=== PATIENT | male | born 1965 | race Caucasian/White ===

== ENCOUNTER 2024-03-05 06:17 | Observation (INO) ==
[2024-03-05] MEDS: ONDANSETRON INJ 2 MG/ML 2 ML VIAL IV STA (06:33)
[2024-03-05 06:44] LABS: Hematocrit (blood only) 42.5 % (42.0-52.0); Hemoglobin 15.2 g/dl (14.0-18.0); Mean Corpuscular Hemoglobin 31.4 pg (25.0-34.0); Mean Corpuscular Hgb Conc 35.8 g/dL (32.0-36.0); Mean Corpuscular Volume 87.8 fL (80.0-100.0); Platelet Count 305 K/uL (130-400); RDW Coefficient of Variation 12.6 % (11.5-14.5); RDW Standard Deviation 40.4 fL (36.4-46.3); Red Blood Count 4.84 M/uL (4.70-6.10); White Blood Count 19.22 K/ul (4.8-10.8)
--- NOTE | 2024-03-05 06:49 | Emergency Department Note ---
Impression & Plan Coffee ground emesis, Acute upper gastrointestinal bleeding, Elevated lactic acid level, Leukocytosis, Hernia, hiatal ED Provider Note HISTORY OF PRESENT ILLNESS: Patient is a 58-year-old male presenting with coffee-ground emesis and left lower quadrant abdominal pain. Patient reports that yesterday he had a left mastoidectomy for Mnire's disease. He reports he got back to the skilled nursing late last night and was feeling generally unwell and then proceeded to vomit for hours. He reports he was unable to get up and pulled his emergency alarm secondary to feeling dizzy like he was going to pass out every time he stood up. He reports that he proceeded to vomit for multiple hours until someone came to check on him. He states that he had upper central abdominal pain that has since localize itself to his left lower quadrant. He denies any dysuria or hematuria. Denies any anticoagulation use. He denies any diarrheal or constipation symptoms. He has an extensive abdominal surgical history secondary to trauma, per the patient. Current planing of nausea. Nursing staff reports that the patient had an episode of coffee-ground emesis in the ER and when fecal occult occult tested it was positive. ROS: as above PHYSICAL EXAM: Constitutional: Patient appears in no acute distress. HENT: Head: Normocephalic and atraumatic. Eyes: EOMI, PERRL Mouth/Throat: Mucous membranes moist. Neck: Trachea midline. Neck supple. Cardiovascular: RRR, No murmurs, rubs or gallops. Intact distal pulses. Pulmonary/Chest: No respiratory distress. Breath sounds clear and equal bilaterally. No wheezes or rales. Abdominal: Abdomen soft, no tenderness, rebound or guarding. Musculoskeletal: No edema, tenderness or deformity noted. Skin: Warm and dry. No rash, erythema, pallor or cyanosis Psychiatric: Appropriate mood and affect for situation. Neurological: Alert and keenly responsive. CN II-XII grossly intact, moving all extremities equally and fully. MDM: - Vitals signs showed tachycardia - History obtained via patient. History as above. - Chronic conditions affecting care: Meniere's disease; HLD - Differential diagnoses include, but are not limited to: esophageal varices; peptic ulcer disease; esophagitis; postoperative complication; ACS - Order placed for continuous cardiac monitoring. At this time, monitor showed rate of 70 bpm with normal sinus rhythm, per my interpretation. - External medical records reviewed. [facility] ENT history and physical exam dated 03/04/2024 was reviewed. Patient was scheduled for surgery in their clinic yesterday. He had a left mastoidectomy with possible OCR, per note. - EKG interpreted by myself showed normal sinus rhythm. Rate 74 bpm. QT 390. No acute ischemic changes. - Laboratory workup interpreted by myself showed leukocytosis (WBC 19.22) with left shift; elevated lactate (2.1); stable electrolytes; hyperglycemia (glucose 163); normal troponin; normal lipase; normal hemoglobin - Patient given 1L NS, 80 mg IV protonix, 20 mg IV pepcid and 4 mg IV zofran. Repeat lactate still elevated at 2.1 - Blood cultures and procalcitonin added to workup. - Patient given IV zosyn empirically - Patient given 50 mcg IV fentanyl for pain. - CTA chest negative for dissection or PE. Noted to have a moderate-sized humeral hernia with fluid-filled mildly dilated esophagus - CT abdomen/pelvis with IV contrast negative for acute pathology. Noted to have moderate hiatal hernia. - COVID/flu/RSV negative - Patient had an episode of coffee-ground emesis in the ER. Nursing tested it was fecal occult positive. - Discussion was had with correctional casework specialist about patient's case and need for admission - Patient was having difficulties urinating in the emergency department and was bladder scanned by nursing staff for almost 700 cc of urine. Rodriguez catheter was placed. - Hospitalist, Dr. Chavez, consulted for admission - Patient admitted to [facility] service for further evaluation and management. ASSESSMENT AND PLAN: Diagnosis: Coffee-ground emesis; hiatal hernia; leukocytosis; elevated lactic acid; upper GI bleed Plan: admit Past Med/Surg History Problem List (Updated 03/05/24 @ 10:28 by Deborah Rowland MD) Hernia, hiatal (Acute) Leukocytosis (Acute) Elevated lactic acid level (Acute) Acute upper gastrointestinal bleeding (Acute) Coffee ground emesis (Acute) Mnire's disease Upper GI bleed Social History Smoking Status: Former smoker Tobacco Type: Cigarettes Preferred Language: Hong Konger Feels Safe at Home: Yes Results & Data (ED) Vital Signs Vital Signs - 24 hr 03/05/24 06:25 03/05/24 06:30 03/05/24 06:59 Temperature 36.5 C 36.5 C Temperature Source Oral Oral Pulse Rate 71 111 H Pulse Rate [Apical] 85 Respiratory Rate 20 15 Respiratory Effort / Characteristics Non-Labored Non-Labored Spontaneous Respiratory Depth Normal Normal Respiratory Pattern Regular Regular Blood Pressure 173/107 H Blood Pressure [Right Arm] 169/115 H Blood Pressure Mean 129 Blood Pressure Mean [Right Arm] 133 Blood Pressure Position Sitting Pulse Oximetry 96 96 Oxygen Delivery Method Room Air Room Air Sepsis Recent Fever Within 48 Hours No Sepsis New/Unexplained Change in Mental Status No Sepsis Action Taken by Nursing No Action Required 03/05/24 06:59 03/05/24 08:08 Temperature Temperature Source Pulse Rate 77 Pulse Rate [Apical] 70 Respiratory Rate 15 14 Respiratory Effort / Characteristics Non-Labored Spontaneous Respiratory Depth Normal Respiratory Pattern Blood Pressure Blood Pressure [Right Arm] 141/84 H Blood Pressure Mean Blood Pressure Mean [Right Arm] 103 Blood Pressure Position Pulse Oximetry 97 97 Oxygen Delivery Method Room Air Room Air Sepsis Recent Fever Within 48 Hours Sepsis New/Unexplained Change in Mental Status Sepsis Action Taken by Nursing Laboratory Data 03/05/24 06:26 03/05/24 06:26 Lab Results 03/05/24 03/05/24 03/05/24 Range/Units 06:26 06:54 08:55 WBC 19.22 H (4.8-10.8) K/ul RBC 4.84 (4.70-6.10) M/uL Hgb 15.2 (14.0-18.0) g/dl Hct 42.5 (42.0-52.0) % MCV 87.8 (80.0-100.0) fL MCH 31.4 (25.0-34.0) pg MCHC 35.8 (32.0-36.0) g/dL RDW Std Deviation 40.4 (36.4-46.3) fL RDW Coeff of Sammie 12.6 (11.5-14.5) % Plt Count 305 (130-400) K/uL MPV 10.0 (9.4-12.4) fL Immature Gran % (Auto) 0.7 % Neut % (Auto) 90.2 % Lymph % (Auto) 6.0 % [place] % (Auto) 3.0 % Eos % (Auto) 0.0 % Baso % (Auto) 0.1 % Neut # (Auto) 17.32 H (1.40-6.50) K/uL Lymph # (Auto) 1.16 L (1.20-3.40) K/uL [place] # (Auto) 0.58 (0.11-0.59) K/uL Eos # (Auto) 0.00 (0.00-0.50) K/uL Baso # (Auto) 0.02 (0.00-0.20) K/uL Immature Gran # (Auto) 0.14 (0.01-0.20) K/uL RBC Morphology Unremarkable Sodium 137 (136-145) mmol/L Potassium 4.3 (3.5-5.1) mmol/L Chloride 101 (98-107) mmol/L Carbon Dioxide 28 (21-32) mmol/L Anion Gap 8 (3-11) BUN 13 (6-23) mg/dl Creatinine 1.03 (0.6-1.4) mg/dl Est Cr Clr Drug Dosing 76.3 ml/min Est GFR ( Amer) 91.1 ml/min Est GFR (Non-Af Amer) 78.6 ml/min BUN/Creatinine Ratio 12.6 (10-20) Glucose 163 H (70-99(Fasting)) mg/dl Lactate 2.1 H* 2.1 H* (0.4-2.0) mmol/L Calcium 9.5 (8.6-10.3) mg/dl Magnesium 2.0 (1.7-2.4) mg/dl Total Bilirubin 0.8 (0.2-1.0) mg/dl AST 23 (13-39) U/L ALT 23 (7-52) U/L Alkaline Phosphatase 77 (34-104) U/L Troponin I High Sens 3.6 (0-20) pg/ml Total Protein 7.7 (6.0-8.3) gm/dl Albumin 4.5 (3.4-5.0) gm/dl Globulin 3.2 (2.5-4.0) gm/dl Albumin/Globulin Ratio 1.4 (0.9-2) Lipase 18 (11-82) U/L SARS-CoV-2 (PCR) (Negative) Influenza Type A (PCR) (Neg) Influenza Type B (PCR) (Neg) RSV (RT-PCR) (Neg) 06/28/24 Range/Units 09:10 WBC (4.8-10.8) K/ul RBC (4.70-6.10) M/uL Hgb (14.0-18.0) g/dl Hct (42.0-52.0) % MCV (80.0-100.0) fL MCH (25.0-34.0) pg MCHC (32.0-36.0) g/dL RDW Std Deviation (36.4-46.3) fL RDW Coeff of Sammie (11.5-14.5) % Plt Count (130-400) K/uL MPV (9.4-12.4) fL Immature Gran % (Auto) % Neut % (Auto) % Lymph % (Auto) % [place] % (Auto) % Eos % (Auto) % Baso % (Auto) % Neut # (Auto) (1.40-6.50) K/uL Lymph # (Auto) (1.20-3.40) K/uL [place] # (Auto) (0.11-0.59) K/uL Eos # (Auto) (0.00-0.50) K/uL Baso # (Auto) (0.00-0.20) K/uL Immature Gran # (Auto) (0.01-0.20) K/uL RBC Morphology Sodium (136-145) mmol/L Potassium (3.5-5.1) mmol/L Chloride (98-107) mmol/L Carbon Dioxide (21-32) mmol/L Anion Gap (3-11) BUN (6-23) mg/dl Creatinine (0.6-1.4) mg/dl Est Cr Clr Drug Dosing ml/min Est GFR ( Amer) ml/min Est GFR (Non-Af Amer) ml/min BUN/Creatinine Ratio (10-20) Glucose (70-99(Fasting)) mg/dl Lactate (0.4-2.0) mmol/L Calcium (8.6-10.3) mg/dl Magnesium (1.7-2.4) mg/dl Total Bilirubin (0.2-1.0) mg/dl AST (13-39) U/L ALT (7-52) U/L Alkaline Phosphatase (34-104) U/L Troponin I High Sens (0-20) pg/ml Total Protein (6.0-8.3) gm/dl Albumin (3.4-5.0) gm/dl Globulin (2.5-4.0) gm/dl Albumin/Globulin Ratio (0.9-2) Lipase (11-82) U/L SARS-CoV-2 (PCR) NEGATIVE (Negative) Influenza Type A (PCR) Negative (Neg) Influenza Type B (PCR) Negative (Neg) RSV (RT-PCR) Negative (Neg) Administered Medications Discontinued Medications Fentanyl Citrate (Fentanyl Citrate Pf 100 Mcg/2 Ml Vial) 50 mcg IV NOW STA Stop: 03/05/24 07:36 Last Admin: 03/05/24 07:49 Dose: 50 mcg Documented By: LACY Sodium Chloride (Nss) 1,000 mls @ 999 mls/hr IV .Q1H1M ONE Stop: 03/05/24 07:47 Last Admin: 03/05/24 07:07 Dose: 999 mls/hr Documented By: LACY Pantoprazole Sodium 80 mg/ (Dextrose) 120 mls @ 480 mls/hr IV ONE STA Stop: 03/05/24 07:01 Last Infusion: 03/05/24 10:16 Dose: Infused Documented By: Admin: 03/05/24 07:51 Dose: 480 mls/hr Documented By: LACY Famotidine (Pepcid 20mg Iv Push) 20 mg in 5 mls @ 2.5 mls/min IV NOW STA Stop: 03/05/24 06:48 Last Admin: 03/05/24 07:04 Dose: 2.5 mls/min Documented By: LACY Ioversol (Optiray 320 125ml) 112 ml IV ONCE ONE Stop: 03/05/24 07:22 Last Admin: 03/05/24 07:22 Dose: 112 ml Documented By: HONEY Ondansetron HCl (Ondansetron Inj 2 Mg/Ml 2 Ml Vial) 4 mg IV NOW STA Stop: 03/05/24 06:24 Last Admin: 03/05/24 06:33 Dose: 4 mg Documented By: KYLAH Imaging Data Radiologist's Impression: Abdomen/Pelvis CT 03/05/24 06:34 CT SCAN OF THE ABDOMEN AND PELVIS WITH IV CONTRAST CLINICAL HISTORY: Generalized abdominal pain. Vomiting. COMPARISON STUDY: No priors. TECHNIQUE: Following the IV administration of 112 cc of Optiray 320, CT scan of the abdomen and pelvis is performed from the lung bases to the proximal femora. Images are reviewed in the axial, sagittal, and coronal planes. IV contrast was administered without complication. A dose lowering technique was utilized adhering to the principles of ALARA. FINDINGS: Lung bases: The heart is normal in size and without pericardial effusion. Emphysematous change is noted at the lung bases. There is bibasilar scarring/atelectasis. No airspace consolidation or pleural effusion is identified. There is a moderate hiatal hernia. The distal esophagus is filled with fluid. Liver: The contrast-enhanced liver is normal in size, contour, and attenuation. There is no intrahepatic biliary ductal dilatation. The hepatic veins and portal veins are patent. Gallbladder: Unremarkable. Spleen: Normal in size and attenuation. Pancreas: Unremarkable. Adrenal glands: Unremarkable. Kidneys: The contrast enhanced kidneys are normal in size and without hydronephrosis. The kidneys enhance symmetrically. There is cortical scarring in the upper pole of the right kidney. A 4 mm nonobstructing calculus is seen on the left. Abdominal vasculature: The abdominal aorta is normal in course and caliber. Bowel: Surgical clips are seen around the proximal stomach. There is mild sigmoid diverticulosis without CT evidence of acute diverticulitis. No bowel obstruction is seen. The appendix is well-visualized and normal. Peritoneum: There is no intraperitoneal free air or abdominal ascites. Lymphadenopathy: None. Pelvic viscera: The prostate gland is normal as imaged. There are foci of gas within the bladder lumen. A fat-containing groin hernia is seen on the left. Skeletal structures: The skeletal structures are osteopenic. There is mild cervical spondylosis. None. Sclerotic change is seen in the medial left ilium. Degenerative changes noted in the sacroiliac joints. No lytic or blastic lesions are seen. IMPRESSION: 1. No acute infectious or inflammatory findings are identified in the abdomen or pelvis. 2. Foci of gas within the bladder lumen are nonspecific and may be related to instrumentation. Correlate with clinical findings and urinalysis. 3. Emphysema. 4. Moderate hiatal hernia with fluid filling the distal esophagus. Note that this may place the patient at risk for aspiration. 5. Additional findings as above. ACT 112: Negative or not required by law. Electronically signed by: Alfredo Arguelles M.D. 03/05/2024 8:26 AM Chest CTA 03/05/24 07:15 CT ANGIOGRAPHY OF THE CHEST CLINICAL HISTORY: GI bleed. COMPARISON STUDY: No previous studies for comparison. TECHNIQUE: Helical images of the chest were obtained during arterial phase following intravenous injection of 112 cc Optiray 320 IV. Sagittal and coronal reconstructions were viewed as well as maximal intensity projections on an independent 3-D workstation. Automated exposure control was utilized for the study. A dose lowering technique was utilized adhering to the principles of ALARA. FINDINGS: The caliber of the thoracic aorta is normal. There is no thoracic aortic dissection. No pulmonary emboli are identified. The size of the heart is normal. There is no pericardial effusion. No enlarged thoracic lymph nodes are present. A prominent lymph node adjacent to the distal esophagus is likely benign. The esophagus is mildly dilated and fluid-filled. There is a moderate sized hiatal hernia. There are surgical clips adjacent to the gastric fundus. No pneumothorax or pleural effusion is present. There is no consolidation to suggest pneumonia. Emphysema is present. There are no suspicious pulmonary nodules. A calcified right lower lobe nodule is benign. The abdomen and pelvis CT will be reported separately. There is a right-sided Bochdalek hernia. Scarring within the upper pole the right kidney is incidentally noted. IMPRESSION: 1. No thoracic aortic dissection. No pulmonary emboli. 2. Moderate-sized hiatal hernia with fluid-filled mildly dilated esophagus. 3. Emphysema. No consolidation to suggest pneumonia. ACT 112: Negative or not required by law. Electronically signed by: Fransico Aquino M.D. 03/05/2024 8:23 AM Discharge Plan Visit Data Chief Complaint: GI Assessment Stated Complaint: Vomiting, Abdominal Pain ED Provider: Deborah Rowland Discharge Problem: Coffee ground emesis, Acute upper gastrointestinal bleeding, Elevated lactic acid level, Leukocytosis, Hernia, hiatal Forms Stand Alone Forms: [facility] Referrals Referrals: Anila PATTEN [Primary Care Provider] -
[2024-03-05 07:02] LABS: Albumin Globulin Ratio 1.4 (0.9-2); Albumin Level 4.5 gm/dl (3.4-5.0); BUN Creatinine Ratio 12.6 (10-20); Bilirubin,Total 0.8 mg/dl (0.2-1.0); Calcium 9.5 mg/dl (8.6-10.3); Creatinine Clr Calc Pharmacy 76.3 ml/min; Est GFR (African American) 91.1 ml/min; Est GFR (Non-African American) 78.6 ml/min; Globulin 3.2 gm/dl (2.5-4.0); Potassium 4.3 mmol/L (3.5-5.1); Total Protein 7.7 gm/dl (6.0-8.3)
[2024-03-05] MEDS: FAMOTIDINE 20MG IV PUSH 20 MG/5 ML SYR IV STA (07:04)
[2024-03-05 07:07] LABS: Troponin I High Sensitivity 3.6 pg/ml (0-20)
[2024-03-05] MEDS: SODIUM CHLORIDE 0.9% 1,000 ML IV ONE ×2 (07:07→10:35)
[2024-03-05] MEDS: OPTIRAY 320 125ml IV ONE (07:22)
[2024-03-05 07:25] LABS: Basophils # (auto) 0.02 K/uL (0.00-0.20); Basophils % (auto) 0.1 %; Immature Granulocytes # (auto) 0.14 K/uL (0.01-0.20); Immature Granulocytes % (auto) 0.7 %; Lymphocytes # (auto) 1.16 K/uL (1.20-3.40); Monocytes # (auto) 0.58 K/uL (0.11-0.59); Neutrophils # (auto) 17.32 K/uL (1.40-6.50); Neutrophils % (auto) 90.2 %; RBC Morphology Unremarkable
[2024-03-05] MEDS: fentaNYL citrate PF 100 MCG/2 ML VIAL IV STA (07:49)
[2024-03-05] MEDS: PANTOprazole 80 MG in DEXTROSE 5% 100 ML IV STA (07:51)
--- NOTE | 2024-03-05 08:26 | CT Scan Report ---
CT ANGIOGRAPHY OF THE CHEST CLINICAL HISTORY: GI bleed. COMPARISON STUDY: No previous studies for comparison. TECHNIQUE: Helical images of the chest were obtained during arterial phase following intravenous inje ction of 112 cc Optiray 320 IV. Sagittal and coronal reconstructions were viewed as well as maximal i ntensity projections on an independent 3-D workstation. Automated exposure control was utilized for t he study. A dose lowering technique was utilized adhering to the principles of ALARA. FINDINGS: The caliber of the thoracic aorta is normal. There is no thoracic aortic dissection. No pul monary emboli are identified. The size of the heart is normal. There is no pericardial effusion. No e nlarged thoracic lymph nodes are present. A prominent lymph node adjacent to the distal esophagus is likely benign. The esophagus is mildly dilated and fluid-filled. There is a moderate sized hiatal her fermin. There are surgical clips adjacent to the gastric fundus. No pneumothorax or pleural effusion is present. There is no consolidation to suggest pneumonia. Emphysema is present. There are no suspiciou s pulmonary nodules. A calcified right lower lobe nodule is benign. The abdomen and pelvis CT will be reported separately. There is a right-sided Bochdalek hernia. Scarring within the upper pole the rig ht kidney is incidentally noted. IMPRESSION: 1. No thoracic aortic dissection. No pulmonary emboli. 2. Moderate-sized hiatal hernia with fluid-filled mildly dilated esophagus. 3. Emphysema. No consolidation to suggest pneumonia. ACT 112: Negative or not required by law. Electronically signed by: Fransico Aquino M.D. 03/05/2024 8:23 AM
--- NOTE | 2024-03-05 08:28 | CT Scan Report ---
CT SCAN OF THE ABDOMEN AND PELVIS WITH IV CONTRAST CLINICAL HISTORY: Generalized abdominal pain. Vomiting. COMPARISON STUDY: No priors. TECHNIQUE: Following the IV administration of 112 cc of Optiray 320, CT scan of the abdomen and pelv is is performed from the lung bases to the proximal femora. Images are reviewed in the axial, sagitta l, and coronal planes. IV contrast was administered without complication. A dose lowering technique w as utilized adhering to the principles of ALARA. FINDINGS: Lung bases: The heart is normal in size and without pericardial effusion. Emphysematous change is not ed at the lung bases. There is bibasilar scarring/atelectasis. No airspace consolidation or pleural e ffusion is identified. There is a moderate hiatal hernia. The distal esophagus is filled with fluid. Liver: The contrast-enhanced liver is normal in size, contour, and attenuation. There is no intrahepa tic biliary ductal dilatation. The hepatic veins and portal veins are patent. Gallbladder: Unremarkable. Spleen: Normal in size and attenuation. Pancreas: Unremarkable. Adrenal glands: Unremarkable. Kidneys: The contrast enhanced kidneys are normal in size and without hydronephrosis. The kidneys enh ance symmetrically. There is cortical scarring in the upper pole of the right kidney. A 4 mm nonobstr ucting calculus is seen on the left. Abdominal vasculature: The abdominal aorta is normal in course and caliber. Bowel: Surgical clips are seen around the proximal stomach. There is mild sigmoid diverticulosis with out CT evidence of acute diverticulitis. No bowel obstruction is seen. The appendix is well-visualiz ed and normal. Peritoneum: There is no intraperitoneal free air or abdominal ascites. Lymphadenopathy: None. Pelvic viscera: The prostate gland is normal as imaged. There are foci of gas within the bladder lume n. A fat-containing groin hernia is seen on the left. Skeletal structures: The skeletal structures are osteopenic. There is mild cervical spondylosis. None . Sclerotic change is seen in the medial left ilium. Degenerative changes noted in the sacroiliac andrey nts. No lytic or blastic lesions are seen. IMPRESSION: 1. No acute infectious or inflammatory findings are identified in the abdomen or pelvis. 2. Foci of gas within the bladder lumen are nonspecific and may be related to instrumentation. Correl ate with clinical findings and urinalysis. 3. Emphysema. 4. Moderate hiatal hernia with fluid filling the distal esophagus. Note that this may place the patie nt at risk for aspiration. 5. Additional findings as above. ACT 112: Negative or not required by law. Electronically signed by: Alfredo Arguelles M.D. 03/05/2024 8:26 AM
--- NOTE | 2024-03-05 09:55 | History & Physical Report ---
Date of Service March 05, 2024 Assessment & Plan (1) Upper GI bleed: Plan: Suspected. Coffee-ground emesis started last evening. No overt hematemesis. Hemoglobin is stable. Will keep n.p.o. for now on Protonix drip and monitor serial H&H. GI consultation is ordered and pending (2) Mnire's disease: Plan: Elective left mastoidectomy yesterday, March 04. Symptomatic care Plan Hopeful discharge back to the [facility] soon, within the next day or 2 History of Present Illness Chief Complaint: Coffee-ground emesis Primary Care Provider: EARLINE Anila 58-year-old white male who underwent elective left mastoidectomy yesterday, March 04, apparently for Mnire's disease. Shortly thereafter he developed coffee- ground emesis. He denies hematemesis or melena. He denies any past history of peptic ulcer disease. He did develop abdominal discomfort associated with the nausea and vomiting. He denies diarrhea. No fever. No lightheadedness or syncope. Hemoglobin 15.2 on admission Past Med/Surg History Problem List (Updated 03/05/24 @ 09:54 by Juve Chavez MD) Mnire's disease Upper GI bleed Social History Smoking Status: Former smoker Tobacco Type: Cigarettes Preferred Language: Malaysian Feels Safe at Home: Yes Review of Systems 2 Review of Systems: Constitutional-no fever or chills ENT-no blurred vision, no double vision, no epistaxis, no sore throat Respiratory-no cough, no wheezing, no shortness of breath Cardiac-no palpitations, no chest pain, no syncope GI-nausea and vomiting started last evening with coffee-ground emesis from the beginning. No melena or hematochezia. No overt hematemesis -no urinary retention, no urinary incontinence, no dysuria, no hematuria Musculoskeletal-no joint pain, no muscle tenderness Skin-no bruising, no rashes, no pruritus Neuro-no isolated weakness, no paresthesia, no weakness Psych-no depression, no anxiety Physical Exam 2 Physical Exam: General-alert and oriented x3, no fever, no chills HEENT-head atraumatic and normocephalic, pupils equal and reactive to light, extraocular muscles intact. Left ear bandage in place Neck-no lymphadenopathy or thyromegaly, trachea midline Chest-clear to auscultation. No rales, wheezing or rhonchi Cardiac-regular rate and rhythm, normal S1 and S2 Abdomen-normal bowel sounds, no hepatosplenomegaly. Nondistended. Mild diffuse tenderness. No rebound or guarding Extremities-no cyanosis, clubbing, or edema Neuro-cranial nerves II through XII intact, motor and sensory function within normal limits, strength symmetrical, no focal deficits Psych-normal affect, normal mood Results & Data Results & Data Vital Signs (Past 12 Hours) Vital Signs Temp Pulse Pulse Resp BP BP Pulse Ox 03/05/24 08:08 70 14 141/84 H 97 03/05/24 06:59 77 15 97 03/05/24 06:59 36.5 C 85 15 169/115 H 96 03/05/24 06:30 36.5 C 111 H 20 173/107 H 96 03/05/24 06:25 71 O2 Del Method 03/05/24 08:08 Room Air 03/05/24 06:59 Room Air 03/05/24 06:59 Room Air 03/05/24 06:30 Room Air 03/05/24 06:25 Laboratory Results 03/05/24 06:26 03/05/24 06:26 Code Status & VTE Plan Code Status Full PG Care Time/CCT Total # of Minutes Spent Total Time Spent with Patient: Total time spent is greater than 50% in coordination of care (as documented) at patient's floor/unit and/or counseling patient: Coding Level of Care Code 14818 INT INP/OBS CARE 3/75MIN Diagnoses Upper GI bleed K92.2 Mnire's disease H81.09
[2024-03-05 10:05] LABS: Influenza A virus by PCR Negative (Neg); Influenza B virus by PCR Negative (Neg); RSV by PCR Negative (Neg); SARS CoV2 RNA(COVID-19) Ceph NEGATIVE (Negative)
--- NOTE | 2024-03-05 10:21 | Electrocardiogram Report ---
Test Reason : Blood Pressure : / mmHG Vent. Rate : 074 BPM Atrial Rate : 074 BPM P-R Int : 190 ms QRS Dur : 092 ms QT Int : 390 ms P-R-T Axes : 045 -01 017 degrees QTc Int : 432 ms Normal sinus rhythm Low voltage QRS Incomplete right bundle branch block Borderline ECG No previous ECGs available Confirmed by Georgi Woods ([id number]) on 03/05/2024 10:20:38 AM Referred By: Anila SCI Confirmed By:Georgi Woods
[2024-03-05] MEDS: PIPERACILLIN/TAZOBACTAM 4.5 GM/100 ML BAG IV ONE (10:34)
[2024-03-05 11:50] LABS: Appearance Urine Clear (Clear); Bilirubin Urine Negative (Negative); Blood Urine Negative (Negative); Color Urine Yellow; Glucose Urine UA Negative (Negative); Ketones Urine Negative (Negative); Leukocyte Esterase Urine Negative (Negative); Nitrite Urine Negative (Negative); Protein Urine Negative (Negative); Specific Gravity Urine 1.041 (1.000-1.030); Urobilinogen Urine Negative (Negative)
[2024-03-05] MEDS ORDERED: METOCLOPRAMIDE HCL INJ 5 MG/ML 2 ML VIAL IV SCH (12:05)
[2024-03-05] MEDS ORDERED: PANTOPRAZOLE BOLUS/DRIP IV STA (12:05)
[2024-03-05] MEDS ORDERED: PANTOprazole 80 MG in DEXTROSE 5% 100 ML IV ONE (12:05)
--- NOTE | 2024-03-05 12:37 | Gastrointestinal Consultation ---
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 He is hemodynamically stable without any further episodes of bleeding since admission. His HGB is stable at 15.2 without BUN elevation. Given hemodynamic stability, no plan for endoscopic evaluation. DDX: esophagitis vs MWT vs gastritis vs less likely PUD, true erosion etc. He denies history of liver disease and no apparent disease on CT. Regarding the clips mentioned on CT in proximal stomach - he is unsure what these are from and notes his last endoscopy was years ago. He denies history of PUD to me. May have clear liquids today If remains stable overnight, advance diet as tolerated Trend H&H Monitor and document GI output Transfuse PRN per primary team IV PPI BID x 48 hours Then PO PPI BID x 1 month then return to his regular PPI dosing No NSAIDs If there is evidence of active GI bleeding or drop in HGB please contact [facility] Thank you for allowing us to participate in the care of this patient. Please call with any acute changes, questions or concerns. Please see addendum below with additional recommendation from my supervising physician. I spent a total of 60 minutes on the date of service in review of patient's record, and previously obtained information in person and appropriate medical visit, discussion and education of plan, with patient and/or caregiver, placing orders for tests/referral/procedures as medically necessary and documentation of pertinent clinical information in patient's medical records for their visit today. Supervising Physician Co-Signing Physician Notes I examined the patient and reviewed patient's chart , laboratory data and imaging studies. I agree with with assessment and plan of care as suggested by advanced practice provider. Questionable coffee-ground emesis 1 day after left mastoidectomy. Vomiting has resolved. Continue to observe. EGD if overt GI bleeding. 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 Pt was seen and evaluated, chart reviewed. Notes he developed post-procedure nausea/vomiting and the emesis was dark brown/coffee ground appearing. This was occult positive. Notes numerous episodes of emesis, most recent was around 0600 this AM. Now he feels improved. No pain. No black or bloody stools. No fever, chills, CP, SOB. H&H 15.2/42.5 BUN 13 NO AC Had two ASA yesterday otherwise typically no NSAIDS No tobacco or ETOH CTAP 2023: No acute infectious or inflammatory findings are identified in the abdomen or pelvis. Foci of gas within the bladder lumen are nonspecific and may be related to instrumentation. Correlate with clinical findings and urinalysis. Emphysema. Moderate hiatal hernia with fluid filling the distal esophagus. Note that this may place the patient at risk for aspiration. Additional findings as above. EGD: few years ago, he isnt sure where or what it showed Colonoscopy: never had before Allergies Allergy/AdvReac Type Severity Reaction Status Date / Time No Known Allergies Allergy Verified 03/05/24 10:34 Home Medications Medication Instructions Recorded Confirmed Type acetaminophen 500 mg tablet 1,000 mg PO TID PRN Pain/Fever 03/05/24 03/05/24 History cephalexin 250 mg capsule 250 mg PO QID 03/05/24 03/05/24 History meclizine 25 mg chewable tablet 25 mg PO TID PRN Dizziness/Vertigo 03/05/24 03/05/24 History omeprazole 20 mg capsule,delayed 20 mg PO DAILYBB 03/05/24 03/05/24 History release ondansetron 4 mg disintegrating 4 mg PO TID PRN Nausea And Vomiting 03/05/24 03/05/24 History tablet pravastatin 20 mg tablet 20 mg PO HS 03/05/24 03/05/24 History Patient History Social History Smoking Status: Former smoker Tobacco Type: Cigarettes Preferred Language: Lithuanian Feels Safe at Home: Yes Review of Systems Review of Systems: All other findings negative except as noted in HPI. Physical Exam Constitutional: WD/WN, vitals as above Respiratory: normal respiratory effort, lungs clear to auscultation Cardiovascular: Rate/Rhythm: regular rate and regular rhythm Gastrointestinal (Abdomen): normal bowel sounds, soft, nontender, no hepatosplenomegaly Skin: no rashes, warm and dry Results & Data Vital Signs (Past 12 Hours) Vital Signs Temp Pulse Pulse Resp BP BP Pulse Ox 03/05/24 11:52 66 12 147/70 H 97 03/05/24 11:51 66 03/05/24 10:31 74 03/05/24 10:00 76 17 159/90 H 97 03/05/24 08:08 70 14 141/84 H 97 03/05/24 06:59 77 15 97 03/05/24 06:59 36.5 C 85 15 169/115 H 96 03/05/24 06:30 36.5 C 111 H 20 173/107 H 96 03/05/24 06:25 71 O2 Del Method 03/05/24 11:52 Room Air 03/05/24 11:51 03/05/24 10:31 03/05/24 10:00 Room Air 03/05/24 08:08 Room Air 03/05/24 06:59 Room Air 03/05/24 06:59 Room Air 03/05/24 06:30 Room Air 03/05/24 06:25 Laboratory Results 03/05/24 03/05/24 03/05/24 Range/Units 10:35 09:37 09:10 WBC (4.8-10.8) K/ul RBC (4.70-6.10) M/uL Hgb (14.0-18.0) g/dl Hct (42.0-52.0) % MCV (80.0-100.0) fL MCH (25.0-34.0) pg MCHC (32.0-36.0) g/dL RDW Std Deviation (36.4-46.3) fL RDW Coeff of Sammie (11.5-14.5) % Plt Count (130-400) K/uL MPV (9.4-12.4) fL Immature Gran % (Auto) % Neut % (Auto) % Lymph % (Auto) % [place] % (Auto) % Eos % (Auto) % Baso % (Auto) % Neut # (Auto) (1.40-6.50) K/uL Lymph # (Auto) (1.20-3.40) K/uL [place] # (Auto) (0.11-0.59) K/uL Eos # (Auto) (0.00-0.50) K/uL Baso # (Auto) (0.00-0.20) K/uL Immature Gran # (Auto) (0.01-0.20) K/uL RBC Morphology Sodium (136-145) mmol/L Potassium (3.5-5.1) mmol/L Chloride (98-107) mmol/L Carbon Dioxide (21-32) mmol/L Anion Gap (3-11) BUN (6-23) mg/dl Creatinine (0.6-1.4) mg/dl Est Cr Clr Drug Dosing ml/min Est GFR ( Amer) ml/min Est GFR (Non-Af Amer) ml/min BUN/Creatinine Ratio (10-20) Glucose (70-99(Fasting)) mg/dl Lactate (0.4-2.0) mmol/L Calcium (8.6-10.3) mg/dl Magnesium (1.7-2.4) mg/dl Total Bilirubin (0.2-1.0) mg/dl AST (13-39) U/L ALT (7-52) U/L Alkaline Phosphatase (34-104) U/L Troponin I High Sens (0-20) pg/ml Total Protein (6.0-8.3) gm/dl Albumin (3.4-5.0) gm/dl Globulin (2.5-4.0) gm/dl Albumin/Globulin Ratio (0.9-2) Lipase (11-82) U/L Procalcitonin < 0.02 (0-0.5) ng/ml Urine Color Yellow Urine Appearance Clear (Clear) Urine pH 8.0 H (4.5-7.5) Ur Specific [place] 1.041 H (1.000-1.030) Urine Protein Negative (Negative) Urine Glucose (UA) Negative (Negative) Urine Ketones Negative (Negative) Urine Blood Negative (Negative) Urine Nitrite Negative (Negative) Urine Bilirubin Negative (Negative) Urine Urobilinogen Negative (Negative) Ur Leukocyte Esterase Negative (Negative) SARS-CoV-2 (PCR) NEGATIVE (Negative) Influenza Type A (PCR) Negative (Neg) Influenza Type B (PCR) Negative (Neg) RSV (RT-PCR) Negative (Neg) Blood Type O Positive Antibody Screen NEGATIVE 03/05/24 03/05/24 03/05/24 Range/Units 08:55 06:54 06:26 WBC 19.22 H (4.8-10.8) K/ul RBC 4.84 (4.70-6.10) M/uL Hgb 15.2 (14.0-18.0) g/dl Hct 42.5 (42.0-52.0) % MCV 87.8 (80.0-100.0) fL MCH 31.4 (25.0-34.0) pg MCHC 35.8 (32.0-36.0) g/dL RDW Std Deviation 40.4 (36.4-46.3) fL RDW Coeff of Sammie 12.6 (11.5-14.5) % Plt Count 305 (130-400) K/uL MPV 10.0 (9.4-12.4) fL Immature Gran % (Auto) 0.7 % Neut % (Auto) 90.2 % Lymph % (Auto) 6.0 % [place] % (Auto) 3.0 % Eos % (Auto) 0.0 % Baso % (Auto) 0.1 % Neut # (Auto) 17.32 H (1.40-6.50) K/uL Lymph # (Auto) 1.16 L (1.20-3.40) K/uL [place] # (Auto) 0.58 (0.11-0.59) K/uL Eos # (Auto) 0.00 (0.00-0.50) K/uL Baso # (Auto) 0.02 (0.00-0.20) K/uL Immature Gran # (Auto) 0.14 (0.01-0.20) K/uL RBC Morphology Unremarkable Sodium 137 (136-145) mmol/L Potassium 4.3 (3.5-5.1) mmol/L Chloride 101 (98-107) mmol/L Carbon Dioxide 28 (21-32) mmol/L Anion Gap 8 (3-11) BUN 13 (6-23) mg/dl Creatinine 1.03 (0.6-1.4) mg/dl Est Cr Clr Drug Dosing 76.3 ml/min Est GFR ( Amer) 91.1 ml/min Est GFR (Non-Af Amer) 78.6 ml/min BUN/Creatinine Ratio 12.6 (10-20) Glucose 163 H (70-99(Fasting)) mg/dl Lactate 2.1 H* 2.1 H* (0.4-2.0) mmol/L Calcium 9.5 (8.6-10.3) mg/dl Magnesium 2.0 (1.7-2.4) mg/dl Total Bilirubin 0.8 (0.2-1.0) mg/dl AST 23 (13-39) U/L ALT 23 (7-52) U/L Alkaline Phosphatase 77 (34-104) U/L Troponin I High Sens 3.6 (0-20) pg/ml Total Protein 7.7 (6.0-8.3) gm/dl Albumin 4.5 (3.4-5.0) gm/dl Globulin 3.2 (2.5-4.0) gm/dl Albumin/Globulin Ratio 1.4 (0.9-2) Lipase 18 (11-82) U/L Procalcitonin (0-0.5) ng/ml Urine Color Urine Appearance (Clear) Urine pH (4.5-7.5) Ur Specific [place] (1.000-1.030) Urine Protein (Negative) Urine Glucose (UA) (Negative) Urine Ketones (Negative) Urine Blood (Negative) Urine Nitrite (Negative) Urine Bilirubin (Negative) Urine Urobilinogen (Negative) Ur Leukocyte Esterase (Negative) SARS-CoV-2 (PCR) (Negative) Influenza Type A (PCR) (Neg) Influenza Type B (PCR) (Neg) RSV (RT-PCR) (Neg) Blood Type Antibody Screen PG Care Time/CCT Total # of Minutes Spent Total Time Spent with Patient: Total time spent is greater than 50% in coordination of care (as documented) at patient's floor/unit and/or counseling patient: Coding Level of Care Code 10001 IN/OBS CONSULT LVL 4,60M Diagnoses Coffee ground emesis K92.0
[2024-03-05] MEDS: SODIUM CHLORIDE 0.9% 1,000 ML IV SCH (12:59)
[2024-03-05 13:06] LABS: Basophils # (auto) 0.02 K/uL (0.00-0.20); Basophils % (auto) 0.1 %; Hematocrit (blood only) 39.4 % (42.0-52.0); Hemoglobin 13.9 g/dl (14.0-18.0); Immature Granulocytes # (auto) 0.13 K/uL (0.01-0.20); Immature Granulocytes % (auto) 0.6 %; Lymphocytes # (auto) 1.17 K/uL (1.20-3.40); Lymphocytes % (auto) 5.8 %; Mean Corpuscular Hemoglobin 31.4 pg (25.0-34.0); Mean Corpuscular Hgb Conc 35.3 g/dL (32.0-36.0); Mean Corpuscular Volume 89.1 fL (80.0-100.0); Mean Platelet Volume 10.1 fL (9.4-12.4); Monocytes # (auto) 0.94 K/uL (0.11-0.59); Monocytes % (auto) 4.6 %; Neutrophils # (auto) 17.96 K/uL (1.40-6.50); Neutrophils % (auto) 88.9 %; Platelet Count 270 K/uL (130-400); RDW Coefficient of Variation 12.9 % (11.5-14.5); Red Blood Count 4.42 M/uL (4.70-6.10); White Blood Count 20.22 K/ul (4.8-10.8)
[2024-03-05 13:20] LABS: BUN Creatinine Ratio 13.2 (10-20); Calcium 8.8 mg/dl (8.6-10.3); Creatinine Clr Calc Pharmacy 86.3 ml/min; Est GFR (African American) 105.8 ml/min; Est GFR (Non-African American) 91.3 ml/min; Potassium 4.3 mmol/L (3.5-5.1)
[2024-03-05] MEDS: METOCLOPRAMIDE HCL 10 MG in SYRINGE 0 ML IV SCH (13:26)
[2024-03-05] MEDS: PANTOprazole 40 MG in DEXTROSE 5% MINI-B 100 ML IV SCH (13:27)
[2024-03-05] MEDS: KETOROLAC TROMETHAMINE 15 MG/ML VIAL IV PRN (16:49)
[2024-03-05 16:56] LABS: Hematocrit (blood only) 40.5 % (42.0-52.0); Hemoglobin 14.3 g/dl (14.0-18.0)
[2024-03-05] MEDS: SUCRALFATE 1 GM/10 ML UDC PO SCH (17:41)
[2024-03-05] MEDS: METOCLOPRAMIDE HCL INJ 5 MG/ML 2 ML VIAL IV SCH (17:41)
[2024-03-05 23:20] LABS: Hematocrit (blood only) 38.3 % (42.0-52.0); Hemoglobin 13.5 g/dl (14.0-18.0)
[2024-03-06 08:10] LABS: Basophils # (auto) 0.02 K/uL (0.00-0.20); Basophils % (auto) 0.1 %; Eosinophils # (auto) 0.01 K/uL (0.00-0.50); Eosinophils % (auto) 0.1 %; Hematocrit (blood only) 35.5 % (42.0-52.0); Hemoglobin 12.5 g/dl (14.0-18.0); Immature Granulocytes # (auto) 0.11 K/uL (0.01-0.20); Immature Granulocytes % (auto) 0.6 %; Lymphocytes # (auto) 2.87 K/uL (1.20-3.40); Lymphocytes % (auto) 16.3 %; Mean Corpuscular Hemoglobin 31.6 pg (25.0-34.0); Mean Corpuscular Hgb Conc 35.2 g/dL (32.0-36.0); Mean Corpuscular Volume 89.6 fL (80.0-100.0); Mean Platelet Volume 10.4 fL (9.4-12.4); Monocytes # (auto) 1.22 K/uL (0.11-0.59); Monocytes % (auto) 6.9 %; Neutrophils # (auto) 13.39 K/uL (1.40-6.50); Platelet Count 258 K/uL (130-400); RDW Coefficient of Variation 13.2 % (11.5-14.5); RDW Standard Deviation 43.2 fL (36.4-46.3); Red Blood Count 3.96 M/uL (4.70-6.10); White Blood Count 17.62 K/ul (4.8-10.8)
[2024-03-06 08:18] LABS: BUN Creatinine Ratio 16.1 (10-20); Calcium 8.4 mg/dl (8.6-10.3); Creatinine Clr Calc Pharmacy 90.3 ml/min; Est GFR (African American) 108.7 ml/min; Est GFR (Non-African American) 93.8 ml/min; Potassium 3.8 mmol/L (3.5-5.1)
[2024-03-06] MEDS: PANTOprazole 40 MG TAB PO SCH (10:25)
--- NOTE | 2024-03-06 11:22 | Discharge Summary ---
Date of Service March 06, 2024 Admission HPI Per Admitting Provider 58-year-old white male who underwent elective left mastoidectomy yesterday, March 04, apparently for Mnire's disease. Shortly thereafter he developed coffee- ground emesis. He denies hematemesis or melena. He denies any past history of peptic ulcer disease. He did develop abdominal discomfort associated with the nausea and vomiting. He denies diarrhea. No fever. No lightheadedness or syncope. Hemoglobin 15.2 on admission Principal Diagnosis Coffee-ground emesis, possible upper GI bleed Discharge Exam General-alert and oriented x3, no fever, no chills HEENT-head atraumatic and normocephalic, pupils equal and reactive to light, extraocular muscles intact. Left ear bandage in place Neck-no lymphadenopathy or thyromegaly, trachea midline Chest-clear to auscultation. No rales, wheezing or rhonchi Cardiac-regular rate and rhythm, normal S1 and S2 Abdomen-normal bowel sounds, no hepatosplenomegaly. Nondistended. Mild diffuse tenderness. No rebound or guarding Extremities-no cyanosis, clubbing, or edema Neuro-cranial nerves II through XII intact, motor and sensory function within normal limits, strength symmetrical, no focal deficits Psych-normal affect, normal mood Discharge Data Allergies Allergy/AdvReac Type Severity Reaction Status Date / Time No Known Allergies Allergy Verified 03/05/24 10:34 Consultations 03/05/24 09:19 ED Decision to Admit Stat 03/05/24 12:05 Consult Gastroenterology Routine Ordered Studies 03/05/24 06:34 CT Abd and Pelvis [CT abd pelvis IV con only] Stat 03/05/24 07:15 CTA chest w con [CT angio chest w con] Stat Hospital Course (1) Upper GI bleed: Suspected. Coffee-ground emesis started on the evening of 03/04. No overt hematemesis. Hemoglobin is stable. He has been seen by the GI service. EGD has not been recommended. He is stable on Protonix. I spoke to the FERRY OPERATOR at [facility] and the patient will be sent back to their infirmary today, March 06. (2) Mnire's disease: Elective left mastoidectomy on March 04. Symptomatic care Plan Discharge back to the [facility] today, March 06 Total Time Total Time Spent Total Time Spent (In Minutes): 50 minutes Discharge Plan Discharge Items [facility] Reason For Visit: coffee grounds emesis Discharge Diagnosis: Coffee-ground emesis, suspected upper GI bleed Activity: Resume your previous activity Non-emergency contact: Primary Care Provider Call non-emergency contact if: your symptoms worsen Follow-up/Referrals: Anila PATTEN [Primary Care Provider] - Diet: Regular Addtl Attending Provider Instructions: Take Protonix as directed Pending Studies at Discharge: No Skilled Items Patient informed of condition?: Yes DNR: No Discharge Level of Care: Other Communicable Disease: No Discharge Prognosis: Stable Lines: None Urinary Catheter: No Medications and DC Order Prescriptions: New pantoprazole 40 mg Tablet,Delayed Release (Dr/Ec) 40 mg PO QAM Qty: 30 0RF Continued cephalexin [Keflex] 250 mg Capsule 250 mg PO QID Rx Instructions: Start Date 03/05/24 - End Date 03/11/24 acetaminophen [Tylenol Ex Str Rapid Release] 500 mg Tablet 1,000 mg PO TID PRN (Reason: Pain/Fever) omeprazole 20 mg Capsule,Delayed Release(Dr/Ec) 20 mg PO DAILYBB pravastatin 20 mg Tablet 20 mg PO HS ondansetron [Zofran ODT] 4 mg Tablet,Disintegrating 4 mg PO TID PRN (Reason: Nausea And Vomiting) meclizine 25 mg Tablet,Chewable 25 mg PO TID PRN (Reason: Dizziness/Vertigo) Admission Data Admit Date/Time: 03/05/24 09:46 Attending Provider: Juve Chavez Admit Provider: Juve Chavez Primary Care Provider: Anila PATTEN Other Providers: Juve Chavez; Ton Westbrook; Oj Mcfarlane; Morelia Corey; Macy Lewis; Lakia Gaines; Hernietta Branch; Marissa Loredo; Bandar Kidd; Marylou Quintana; Gabriel Lagos; Mark Funez; Jeannette Overton; Cierra Peña; Ivana Bender; Anna Aquino; Isai Henry; Denzel Crow; Norman Tang; Chelsea Gordillo; Nydia Delacruz Jr; Jeremiah Serrano.; Harshad Stuart; Venkat Boucher; Ashvin Tolentino Coding Level of Care Code 72502 INP/OBS DISCH >30 MIN Diagnoses Upper GI bleed K92.2 Mnire's disease H81.09
== END 2024-03-06 13:13 ==
LOC: SUATTDRO → EDINP 06:17 → ED 06:17 → 2N 10:44